=== PATIENT | male | born 1990 | race Two or more races ===

== ENCOUNTER 2018-10-27 11:27 | Emergency (ER) | payer SELFPAY ==
[2018-10-27 11:30] VITALS: BP 122/69; PULSE 70; RESP 16; TEMP 98.4; O2SAT 97
[2018-10-27 11:31] VITALS: BMI 24.3
--- NOTE | 2018-10-27 13:00 | ED PDOC ---
History of Present Illness History of Present Illness: 28 yo M, no PMHx, presents to the ED with complaint of generalized body aches, sore throat, and weakness. NO vomiting but nauseous. 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 HPI: Influenza Time Seen by Provider: 10/27/18 11:37 Chief Complaint: Flu-like Symptoms History Per: Patient Exam Limitations: no limitations Onset/Duration Of Symptoms: Days Symptoms include: fever, bodyaches, sore throat Sick Contacts (Context): None Hx Influenza Vaccination: Yes Past Medical History Vital Signs: Last Vital Signs Temp 98.4 F 10/27/18 11:30 Pulse 70 10/27/18 11:30 Resp 16 10/27/18 11:30 BP 122/69 10/27/18 11:30 Pulse Ox 97 10/27/18 11:30 ARNULFO Report Viewed: Yes - Medical History PMH: No Chronic Diseases - Family History Family History: States: Unknown Family Hx - Allergies Allergies/Adverse Reactions: Allergies Allergy/AdvReac Type Severity Reaction Status Date / Time No Known Allergies Allergy Verified 10/27/18 11:47 Review of Systems Constitutional: Positive for: Fever, Chills, Weakness, Malaise Cardiovascular: Negative for: Chest Pain, Palpitations Respiratory: Negative for: Cough, Shortness of Breath Gastrointestinal: Positive for: Nausea. Negative for: Vomiting, Abdominal Pain, Diarrhea Genitourinary Male: Negative for: Dysuria Skin: Negative for: Rash Neurological: Negative for: Weakness, Numbness, Incoordination Psych: Negative for: Anxiety Physical Exam - Reviewed Vital Signs Reviewed: Yes - Physical Exam Appears: Positive for: Well, Non-toxic, Uncomfortable (pt appears tired) Head Exam: Positive for: ATRAUMATIC Skin: Positive for: Normal Color, Warm, Dry Eye Exam: Positive for: Normal appearance ENT: Positive for: Normal ENT Inspection Neck: Positive for: Normal Cardiovascular/Chest: Positive for: Regular Rate, Rhythm. Negative for: Chest Non Tender Respiratory: Positive for: Normal Breath Sounds Gastrointestinal/Abdominal: Positive for: Normal Exam Medical Decision Making Medical Decision Makin yo M with viral syndrom. Given Zofran and Motrin with improvement in symptoms. Influenza negative. Vitals WNL. Pt encouraged to increase rest and hydration. - ECG O2 Sat by Pulse Oximetry: 97 Disposition - Clinical Impression Clinical Impression: Influenza-like symptoms - Patient ED Disposition Is Patient to be Admitted: No - Disposition Disposition: Routine/Home Disposition Time: 12:15 Condition: IMPROVED
== END 2018-10-27 13:00 | disposition home or self-care (01) ==
LOC: H.ER 11:27
DX: R53.1 Weakness (principal); J11.1 Influenza due to unidentified influenza virus with other respiratory manifestations